=== PATIENT | female | born 1980 | race Caucasian/White ===

== ENCOUNTER 2019-05-27 15:09 | Emergency (ER) | payer OTHER ==
[~2019-05-27] VITALS: Ht 172.7 cm; Wt 81.7 kg
[2019-05-27 15:11] VITALS: BP 142/68
== END 2019-05-27 16:30 | disposition home or self-care (01) ==
LOC: ER 15:09
DX: H66.92 Otitis media, unspecified, left ear (principal); H69.92 Unspecified Eustachian tube disorder, left ear

== ENCOUNTER 2019-06-07 21:16 | Emergency (ER) | payer OTHER ==
[~2019-06-07] VITALS: Ht 162.6 cm; Wt 95.3 kg
[2019-06-07] MEDS ORDERED: CYMBALTA30 MG PO (21:53)
[2019-06-07] MEDS ORDERED: ABILIFY10 MG PO (21:55)
[2019-06-07] MEDS ORDERED: ACCUNEB SO1.25 MG/1 INH (21:56)
[2019-06-07 22:26] LABS: ABSOLUTE NEUTROPHILS 6.5 thou/uL (1.4-8.2); BASOPHILS 1.2 % (0.0-2.0); EOSINOPHILS 1.2 % (0.0-3.0); HEMATOCRIT 39.7 % (37.0-47.0); HEMOGLOBIN 13.3 gm/dL (12.0-15.0); LYMPHOCYTES 30.6 % (24.0-44.0); MCH 31.7 pg (26.0-34.0); MCHC 33.6 g/dL (28.0-37.0); MCV 94.3 fL (80.0-100.0); MONOCYTES 8.2 % (1.0-8.0); PLATELET COUNT 365 thou/uL (150-400); POLYS 58.8 % (36.0-66.0); RBC 4.21 mil/uL (4.20-5.00); RDW 13.2 % (10.5-14.5)
[2019-06-07 22:52] LABS: ANION GAP 12 mmol/L (7-16); BUN 12 mg/dL (7-18); CALCIUM 9.2 mg/dL (8.5-10.1); CHLORIDE 106 mmol/L (98-107); CO2 22 mmol/L (21-32); GLUCOSE 105 mg/dL (74-106); SODIUM 140 mmol/L (136-145)
[2019-06-07 23:01] LABS: TROPONIN-I <0.06 ng/mL (<0.06)
[2019-06-08] MEDS ORDERED: XANAX 0.5 MG0.5 MG PO (00:04)
[2019-06-08] MEDS ORDERED: MOBIC15 MG PO (00:04)
[2019-06-08 00:14] VITALS: BP 118/64
--- NOTE | 2019-06-08 12:52 | EKG ---
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
== END 2019-06-08 00:14 | disposition home or self-care (01) ==
LOC: ER 21:16
PROVIDERS: Emergency Medicine
DX: R07.9 Chest pain, unspecified (principal); F41.9 Anxiety disorder, unspecified

== ENCOUNTER 2019-08-02 17:50 | Emergency (ER) | payer OTHER ==
[~2019-08-02] VITALS: Ht 162.6 cm; Wt 91.2 kg
[~2019-08-02 17:50] MED LIST: ABILIFY10 MG PO; ACCUNEB SO1.25 MG/1 INH; CYMBALTA30 MG PO; MOBIC15 MG PO; XANAX 0.5 MG0.5 MG PO
[2019-08-02] MEDS ORDERED: TIZANIDINE HCL 22 M1 PO (17:56)
[2019-08-02 18:29] LABS: ABSOLUTE NEUTROPHILS 4.3 thou/uL (1.4-8.2); BASOPHILS 0.8 % (0.0-2.0); EOSINOPHILS 2.2 % (0.0-3.0); HEMATOCRIT 39.8 % (37.0-47.0); HEMOGLOBIN 13.5 gm/dL (12.0-15.0); LYMPHOCYTES 33.3 % (24.0-44.0); MCH 32.4 pg (26.0-34.0); MCHC 33.9 g/dL (28.0-37.0); MCV 95.6 fL (80.0-100.0); MONOCYTES 8.1 % (1.0-8.0); PLATELET COUNT 321 thou/uL (150-400); POLYS 55.6 % (36.0-66.0); RBC 4.17 mil/uL (4.20-5.00); RDW 12.9 % (10.5-14.5); WBC 7.8 thou/uL (4.0-11.0)
[2019-08-02 18:29] LABS: URINE BILIRUBIN NEGATIVE (Negative); URINE BLOOD 3+ (Negative); URINE CLARITY CLEAR; URINE COLOR YELLOW; URINE GLUCOSE-RANDOM* NEGATIVE (Negative); URINE KETONES NEGATIVE (Negative); URINE LEUKOCYTES-REFLEX TRACE (Negative); URINE NITRITE-REFLEX NEGATIVE (Negative); URINE PROTEIN (DIPSTICK) NEGATIVE (Negative); URINE SPECIFIC GRAVITY >= 1.030 (1.005-1.035); URINE UROBILINOGEN 0.2 E.U./dl (0.2-1.0)
[2019-08-02 18:33] LABS: ANION GAP 8 mmol/L (7-16); BUN 13 mg/dL (7-18); CALCIUM 9.3 mg/dL (8.5-10.1); CHLORIDE 106 mmol/L (98-107); CO2 26 mmol/L (21-32); CREATININE 0.9 mg/dL (0.6-1.0); GLUCOSE 91 mg/dL (74-106); POTASSIUM 4.1 mmol/L (3.5-5.1); SODIUM 140 mmol/L (136-145)
[2019-08-02 18:37] LABS: BACTERIA-REFLEX 1-9 Few /HPF (None Seen); CASTS None Seen /LPF (None Seen); CRYSTALS None Seen /LPF (None Seen); SQUAMOUS None Seen /LPF (0-3); URINE RBC 3-10 Few /HPF (0-2); URINE WBC-REFLEX 6-15 Few /HPF (0-5)
[2019-08-02 18:42] LABS: MAGNESIUM 1.7 mg/dL (1.8-2.4); TROPONIN-I <0.06 ng/mL (<0.06)
[2019-08-02 20:11] VITALS: BP 146/66
--- NOTE | 2019-08-04 12:53 | EKG ---
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1980 Requested By: Andriy Melendrez Order Number: [id number] MD: Josiah Campbell Measurements Intervals [place] Rate: 57 P: 42 AR: 142 QRS: 35 QRSD: 86 T: 37 QT: 435 QTc: 424 Interpretive Statements Sinus bradycardia Otherwise normal tracing Compared to ECG 06/07/2019 21:40:18 No significant changes Electronically Signed On 08-04-2019 12:53:15 [employer]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
== END 2019-08-02 20:12 | disposition home or self-care (01) ==
LOC: ER 17:50
PROVIDERS: Emergency Medicine
DX: R56.9 Unspecified convulsions (principal); M54.5 Low back pain; F41.0 Panic disorder [episodic paroxysmal anxiety]; Z88.8 Allergy status to other drugs, medicaments and biological substances

== ENCOUNTER 2019-08-06 18:46 | Emergency (ER) | payer OTHER ==
[~2019-08-06] VITALS: Ht 162.6 cm; Wt 93.0 kg
[~2019-08-06 18:46] MED LIST changes: +TIZANIDINE HCL 22 M1 PO
[2019-08-06 18:54] VITALS: BP 140/80
[2019-08-06] MEDS ORDERED: PREDNISONE 10 M10 MG PO (19:35)
[2019-08-06] MEDS ORDERED: NORFLEX100 MG PO (19:35)
[2019-08-06] MEDS ORDERED: KEFLEX500 M1 PO (19:53)
[2019-08-06] MEDS ORDERED: DIFLUCAN150 MG PO (19:53)
== END 2019-08-06 19:55 | disposition home or self-care (01) ==
LOC: ER 18:46
DX: S29.012A Strain of muscle and tendon of back wall of thorax, initial encounter (principal); N39.0 Urinary tract infection, site not specified; Z88.8 Allergy status to other drugs, medicaments and biological substances; X50.0XXA Overexertion from strenuous movement or load, initial encounter; Y92.89 Other specified places as the place of occurrence of the external cause; Y93.89 Activity, other specified; Y99.8 Other external cause status